=== PATIENT | male | born 1950 | race Caucasian/White ===

== ENCOUNTER → 2018-08-19 10:36 | Outpatient (CLI) | payer MEDICARE, OTHER | END | disposition home or self-care (01) | LOC: D.US 10:36 | DX: R10.31 Right lower quadrant pain (principal) ==

== ENCOUNTER → 2018-10-22 08:18 | Outpatient (CLI) | payer MEDICARE, OTHER ==
[~2018-10-22] VITALS: Ht 175.3 cm; Wt 86.2 kg
[2018-10-22 09:57] VITALS: Ht 175.3 cm; Wt 86.2 kg
== END | disposition home or self-care (01) ==
LOC: D.FANS 08:18
DX: E11.65 Type 2 diabetes mellitus with hyperglycemia (principal)

== ENCOUNTER 2019-03-28 17:31 | Emergency (ER) | payer MEDICARE, OTHER ==
[~2019-03-28] VITALS: Ht 175.3 cm; Wt 86.4 kg
[2019-03-28 17:38] VITALS: Ht 175.3 cm; Wt 86.4 kg
[2019-03-28] MEDS ORDERED: ISOSORBIDE MONO30 M1 PO (17:47)
[2019-03-28] MEDS ORDERED: COREG12.5 MG PO (17:47)
[2019-03-28] MEDS ORDERED: KLOR-CON 1010 MEQ PO (17:48)
[2019-03-28] MEDS ORDERED: LASIX80 MG PO (17:48)
[2019-03-28] MEDS ORDERED: PLAVIX75 MG PO (17:48)
[2019-03-28] MEDS ORDERED: ELIQUIS5 MG PO (17:48)
[2019-03-28] MEDS ORDERED: RESTORIL15 MG PO (17:49)
[2019-03-28] MEDS ORDERED: PROBENECID500 MG PO (17:49)
[2019-03-28] MEDS ORDERED: CRESTOR10 MG PO (17:49)
[2019-03-28] MEDS ORDERED: JANUVIA100 MG PO (17:50)
[2019-03-28] MEDS ORDERED: NEURONTIN 300300 MG PO (17:50)
[2019-03-28] MEDS ORDERED: ZOLOFT25 MG PO (17:51)
[2019-03-28] MEDS ORDERED: ALDACTONE25 MG PO (17:51)
[2019-03-28] MEDS ORDERED: SOLIQUA 100 UNIT3 ML SQ (17:51)
[2019-03-28] MEDS ORDERED: COLCRYS0.6 MG PO (17:51)
[2019-03-28 18:24] LABS: BASOPHILS 0.4 % (0-2); EOSINOPHILS 2.1 % (0-7); HEMATOCRIT 35.7 % (42.0-54.0); IMMATURE GRANULOCYTES 0.3 % (0-5); LYMPHOCYTES 21.2 % (15-50); MCH 30.5 pg (26.0-34.0); MCHC 33.6 g/dL (31.0-37.0); MCV 90.6 fL (80.0-100.0); MEAN PLATELET VOLUME 10.4 fL (7.4-10.4); MONOCYTES 7.4 % (2-11); NEUTROPHILS 68.6 % (40-80); PLATELET COUNT 130 10x3/uL (130-400); RBC 3.94 10x6/uL (4.20-6.10); RDW 15.1 % (11.5-14.5); WBC 7.8 10x3/uL (4.8-10.8)
[2019-03-28 18:30] LABS: INR 1.49 (0.85-1.17); PROTIME 17.4 SECONDS (11.6-15.0)
[2019-03-28 18:31] LABS: APTT 70.8 SECONDS (22.8-39.4)
[2019-03-28 19:13] VITALS: BP 155/67
== END 2019-03-28 19:13 | disposition home or self-care (01) ==
LOC: D.ER 17:31
PROVIDERS: Family Medicine
DX: R04.0 Epistaxis (principal); Z79.01 Long term (current) use of anticoagulants; E11.9 Type 2 diabetes mellitus without complications; I10 Essential (primary) hypertension